=== PATIENT | male | born 1960 | race Caucasian/White ===

== ENCOUNTER → 2019-01-10 11:37 | Outpatient (CLI) | payer MEDICAID, SELFPAY ==
[2016-05-26 19:48] VITALS: BMI 29.6
--- NOTE | 2019-01-10 11:45 | RAD_ITS ---
STUDY: X-RAY - LEFT KNEE REASON FOR EXAM: Male, 59 years old. Pain TECHNIQUE: 2 view(s) of the knee. COMPARISON: None. FINDINGS: Normal visualized distal femur. Normal visualized proximal tibia and fibula. Normal proximal tibiofibular articulation. Normal medial femorotibial compartment. Normal lateral femorotibial compartment. Normal patellofemoral articulation. The soft tissue structures are unremarkable. RAD/Knee 1 or 2 Views IMPRESSION: Normal x-ray examination of the knee. Electronically Signed: Ryan Burnett MD at 0:01 EST , Service support ,
== END ==
PROVIDERS: Family Provider Family Medicine; PCP Family Medicine
DX: M25.562 Pain in left knee (principal)
CPT/HCPCS: 73560

== ENCOUNTER → 2019-05-02 15:59 | Outpatient (CLI) | payer MEDICAID, SELFPAY ==
[2016-05-26 19:48] VITALS: BMI 29.6
--- NOTE | 2019-05-02 16:20 | RAD_ITS ---
STUDY: X-RAY - LEFT ANKLE REASON FOR EXAM: Male, 59 years old. Chronic left ankle pain TECHNIQUE: 2 view(s) of the ankle. COMPARISON: June 24, 2016 FINDINGS: There are no acute fractures or dislocations. The ankle mortise and the subtalar joints are normal. There is a small plantar calcaneal spur. Electronically Signed: Jason Price MD at 3:31 EDT Tel , Service support , RAD/Ankle 2 Views
== END ==
PROVIDERS: Family Provider Family Medicine; PCP Family Medicine
DX: M25.572 Pain in left ankle and joints of left foot (principal)
CPT/HCPCS: 73600

== ENCOUNTER → 2019-12-12 13:04 | Outpatient (CLI) | payer MEDICAID, SELFPAY ==
[2016-05-26 19:48] VITALS: BMI 29.6
--- NOTE | 2019-12-12 13:45 | RAD_ITS ---
STUDY: X-RAY - LEFT FOOT CLINICAL: Male, 59 years old. heel spur TECHNIQUE: 2 view(s) of the foot. COMPARISON: None. FINDINGS: There is a plantar calcaneal spur and there is a posterior calcaneal enthesophyte at the insertion site of the Achilles'' tendon. Otherwise normal talus, calcaneus, and tarsal bones, Normal visualized subtalar, talonavicular, calcaneocuboid, tarsal and tarsometatarsal articulations. Normal metatarsi. Normal metatarsophalangeal joint of the great toe. Normal tibial and fibular sesamoid bones. Normal interphalangeal joint of the great toe. Normal phalanges of the great toe. Normal second through fifth metatarsophalangeal joints. Normal interphalangeal joints and phalanges of the lesser toes. There are 3 tiny rounded calcific densities, ranging up to 0.5 mm, projecting over plantar soft tissues between the first and second metatarsal heads. These may be related to remote soft tissue trauma.. RAD/Foot 2 Views IMPRESSION: Plantar calcaneal spur and posterior calcaneal enthesophyte. No demonstrated fracture, dislocation, or destructive osseous lesion. Electronically Signed: Skyler Romo MD at 0:22 EST , Service support ,
--- NOTE | 2019-12-12 13:45 | RAD_ITS ---
STUDY: X-RAY - LUMBAR SPINE REASON FOR EXAM: Male, 59 years old. low back pain for years; worsening recently TECHNIQUE: 6 view(s) of the lumbar spine were obtained. COMPARISON: X-Ray Lumbar Spine 04/23/2016. FINDINGS: Normal lumbar lordosis. There is no substantial scoliosis. There is a normal alignment of the vertebrae. Normal vertebral bodies. There is mild multilevel spondylosis.. Normal disc space heights. There is mild degenerative arthrosis of the facet joints at the L5-S1 level.. The soft tissue structures are unremarkable. RAD/L/S Spine Min 4 Views IMPRESSION: Degenerative changes of the spine, as detailed above. Electronically Signed: Skyler Romo MD at 0:42 EST , Service support ,
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
== END ==
PROVIDERS: PCP Family Medicine; Referring Provider Anesthesiology Pain Medicine; Visit Provider Anesthesiology Pain Medicine
DX: G89.4 Chronic pain syndrome (principal); M79.10 Myalgia, unspecified site; F11.21 Opioid dependence, in remission; M19.011 Primary osteoarthritis, right shoulder; M79.672 Pain in left foot; M54.5 Low back pain; M51.36 Other intervertebral disc degeneration, lumbar region
CPT/HCPCS: 72110; 73030; 73620

== ENCOUNTER 2020-09-21 18:22 | Emergency (ER) | payer MEDICAID, SELFPAY ==
[2020-09-21 18:23] VITALS: BP 143/69; PULSE 70; RESP 16; TEMP 36.5; O2SAT 96; BMI 30.9
[2020-09-21 19:05] LABS: Bacteria 0 SEEN /hpf (None Seen); Mucous, Urine 0 SEEN /hpf (<or=2+); Red Blood Cells-Urine 0 SEEN /hpf (0-5); Squamous Epithelial Cells - UA 0 SEEN /hpf (0-5); White Blood Cells 0 SEEN /hpf (0-5)
[2020-09-21 19:07] LABS: Color, Urine Yellow (Yellow); Glucose, Dipstick Normal (Normal); Ketone-Dipstick Negative (Negative); Leukocyte Esterase-Dipstick Negative /ul (Negative); Nitrite-Dipstick Negative (Negative); Occult Blood-Urine 50 /ul (Negative); Protein-Dipstick 15 mg/dl (Negative); Specific Gravity, Urine 1.025 (1.002-1.030); Urine Bilirubin Dipstick Negative (Negative); Urine Clarity Clear (Clear); Urine Urobilinogen Normal (Normal)
--- NOTE | 2020-09-21 19:34 | CT_ITS ---
STUDY: CT ABDOMEN AND PELVIS WITH CONTRAST REASON FOR EXAM: Male, 60 years old. LT SIDED ABDOMEN PAIN SINCE THURSDAY,ELEVATED WBC -- HX:HTN,DIVERTICULITIS WITH SURGERY RADIATION DOSAGE (If Supplied By Facility): CTDIvol = ( 14.77 ) mGy, DLP = ( 882.37 ) mGycm TECHNIQUE: Transaxial images were obtained from the dome of the diaphragm to the symphysis pubis without oral contrast. IV 100ML ISOVUE 300 was administered. Sagittal and coronal images were reconstructed. Individualized dose optimization techniques were used for this CT. COMPARISON: Prior abdomen and pelvic CT exam of 09/24/2013 FINDINGS: Stable chronic fibrotic change at the right lung base. Chronic elevation right diaphragm. Normal liver. Normal gallbladder and extrahepatic biliary system. Normal spleen. Normal pancreas. Normal bilateral adrenal glands. Normal right kidney. Normal left kidney. Normal visualized stomach. Normal small intestine. Diverticulosis of the colon without evidence of acute diverticulitis. Unremarkable sigmoid anastomosis. The appendix is visualized and appears normal. Mild calcified plaque of the aorta. Normal inferior vena cava. Normal retroperitoneum. Normal urinary bladder. Normal abdominal wall. Normal osseous structures. CT/Abdomen/Pelvis W IV Cont ONLY IMPRESSION: Stable fibrotic changes at the right lung base and chronic elevation of the right diaphragm. No acute bowel related findings. Negative for evidence of perforation, obstruction or inflammatory bowel changes. Diverticulosis is present without evidence of acute diverticulitis. Unremarkable sigmoid anastomosis. A normal appendix is identified. Normal kidneys bilaterally without hydronephrosis or stones. Nondistended urinary bladder. Unremarkable liver, spleen and pancreas with a nondistended gallbladder. Electronically Signed: Carrie Henderson MD at 21:56 EST , Service support ,
--- NOTE | 2020-09-21 19:35 | ED.VIS.GEN ---
History of Present Illness Chief Complaint: Flank Pain Informant: Patient Narrative: 60 yo male presents with left flank pain. States it began approximately 5 days ago. States it is intermittent in nature. States it began when he was moving a hot water tank. Denies any nausea or vomiting. Denies any urinary symptoms. His feels he has a kidney stone. Past Medical History - Allergies and Home Meds Allergies/Adverse Reactions: Allergies bacitracin Allergy (Verified 09/21/20 18:22) Swelling venom-wasp [wasp venom] Allergy (Verified 09/21/20 18:22) Shortness of breath ibuprofen Adverse Reaction (Verified 09/21/20 18:22) Nausea naproxen Adverse Reaction (Verified 09/21/20 18:22) Nausea Primary Care Physician: Charly Lara MD [Primary Care Provider] - Prior records reviewed: Yes Past Medical History: - - HTN Surgical History: noncontributory Smoking Status: Former smoker Alcohol: None Drugs: None Review of Systems General: Denies: Chills, Fever, Sweats Eyes: Denies: Visual changes - bilaterally, Diplopia ENT: Denies: Rhinorrhea, Sore throat Cardiovascular: Denies: Chest pain, Palpitations Respiratory: Denies: Dyspnea, Cough, Dyspnea on exertion Gastrointestinal: Reports: Abdominal pain. Denies: Nausea, Vomiting, Diarrhea, Melena, Hematochezia Genitourinary: Denies: Dysuria, Hematuria, Frequency Musculoskeletal: Denies: Back pain, Extremity Pain Skin: Denies: Rash, Wounds Neurological: Denies: Headache, Weakness, Numbness Physical Exam Vital Signs/Narrative: Vital Signs Temp Pulse Resp BP Pulse Ox 09/21/20 18:23 97.7 F L 70 16 143/69 H 96 Inital Vital Signs reviewed: Yes General: Well nourished, Well developed, No Acute Distress Head: Normocephalic, Atraumatic Eyes: Perrl, EOMI ENT: Moist mucous membranes, No rhinorrhea Neck: Supple, Nontender Cardiovascular: Regular rate, Regular rhythm, No murmurs Respiratory: No distress, CTA bilaterally, Chest nontender Abdomen: Soft, Nondistended, Normal bowel sounds, - - LLQ TTP. Back: Nontender, Normal Inspection Extremities: Nontender, No edema Skin: Normal color, No rash Neurological: Alert, Oriented x3, Cranial nerves II-XII grossly intact, Normal Strength, Normal Sensation Psychological: Normal affect, Normal Mood Diagnostic/Tx/Re-eval Clinical Impression(s) from Imaging Studies Abdomen/Pelvis CT 09/21/20 19:34 IMPRESSION: Stable fibrotic changes at the right lung base and chronic elevation of the right diaphragm. No acute bowel related findings. Negative for evidence of perforation, obstruction or inflammatory bowel changes. Diverticulosis is present without evidence of acute diverticulitis. Unremarkable sigmoid anastomosis. A normal appendix is identified. Normal kidneys bilaterally without hydronephrosis or stones. Nondistended urinary bladder. Unremarkable liver, spleen and pancreas with a nondistended gallbladder. Electronically Signed: Carrie Henderson MD at 21:56 EST , Service support , Laboratory Data 09/21/20 09/21/20 09/21/20 18:58 20:02 20:02 WBC 11.9 H RBC 5.27 Hgb 15.7 Hct 47.0 MCV 89.2 MCH 29.8 MCHC 33.4 RDW Std Deviation 39.4 RDW Coeff of Shanna 12.0 Plt Count 288 MPV 9.0 Immature Gran % (Auto) 0.600 Neut % (Auto) 60.8 Lymph % (Auto) 25.4 [place] % (Auto) 11.7 H Eos % (Auto) 0.8 Baso % (Auto) 0.7 Absolute Neuts (auto) 7.3 Absolute Lymphs (auto) 3.03 Nucleated RBC % 0 Sodium 139 Potassium 4.7 Chloride 105 Carbon Dioxide 29.0 Anion Gap 5 BUN 19 H Creatinine 0.81 Estim Creat Clear Calc 87.52 Est GFR (MDRD) Af Amer 124 Est GFR (MDRD) Non-Af 103 BUN/Creatinine Ratio 23.4 H Glucose 98 Calcium 9.2 Total Bilirubin 0.70 AST 29 ALT 30 Alkaline Phosphatase 107 Total Protein 7.6 Albumin 3.9 Globulin 3.7 Albumin/Globulin Ratio 1.1 Urine Color Yellow Urine Clarity Clear Urine pH 5.0 Ur Specific [place] 1.025 Urine Protein 15 H Urine Glucose (UA) Normal Urine Ketones Negative Urine Occult Blood 50 H Urine Nitrite Negative Urine Bilirubin Negative Urine Urobilinogen Normal Ur Leukocyte Esterase Negative Urine RBC 0 SEEN Urine WBC 0 SEEN Ur Squamous Epith Cells 0 SEEN Urine Bacteria 0 SEEN Urine Mucus 0 SEEN - Medical Decision Making Patient appears well nontoxic. Vital signs within normal limits. Lab work within normal limits. Patient does have scant in his urine. CT scan negative. Patient either passed a kidney stone or has a musculoskeletal injury. Will be treated with Naprosyn at home. Asked to follow-up with primary care. Patient agreeable and discharged home in stable condition. Impression: 1. Left groin pain ED Disposition - Plan for ED Patient: Instructions: ED Flank Pain Uncertain Cause Prescriptions: Naproxen [Naprosyn] 500 mg PO BID #14 tab Prescription Printed Referrals: Charly Lara MD [Primary Care Provider] - 2 Days
[2020-09-21 20:03] VITALS: BP 149/87; PULSE 63; RESP 18; O2SAT 97
[2020-09-21 20:17] LABS: Basophil% 0.7 % (0-1); Eosinophils% 0.8 % (0-5); Hemoglobin 15.7 g/dL (13.0-16.5); Lymphocyte % 25.4 % (19-41); Mean Corp Hgb Conc 33.4 g/dL (32-36); Mean Corpuscular Hgb 29.8 pg (27.0-32.0); Mean Corpuscular Volume 89.2 fL (80-94); Monocyte% 11.7 % (0-10); Neutrophil % 60.8 % (47-70); Platelet Count 288 K/mm3 (150-450); RBC Distribution Width SD 39.4 fl (35.1-43.9); Red Blood Count 5.27 M/mm3 (4.6-6.2); White Blood Count 11.9 K/mm3 (4.4-11.0)
[2020-09-21 20:18] LABS: Absolute Lymphocyte Count 3.03 X10^3/uL (0.83-4.51); Absolute Neutrophil Count 7.3 X10^3/uL (2.0-7.7); Basophil# 0.08 X10^3/uL; Lymphocyte # 3.03 X10^3/ul (4.0); NRBC Flagged by Analyzer 0 % (0-5); Neutrophil # 7.26 X10^3/uL (2.7-7.7)
[2020-09-21 21:06] LABS: ALB/GLOB Ratio 1.1 RATIO (0.9-2.4); AST(SGOT) 29 U/L (15-37); Alanine Aminotransfer ALT/SGPT 30 U/L (16-61); Albumin, Serum 3.9 g/dL (3.2-5.0); Alkaline Phosphatase 107 U/L (45-117); Anion Gap 5 (5-15); BUN 19 mg/dL (7-18); BUN/Creat Ratio 23.4 RATIO (10-20); Calcium,Total 9.2 mg/dL (8.5-10.1); Chloride 105 mmol/L (98-107); Creatinine, Serum 0.81 mg/dL (0.70-1.30); EST Glomerular Filtration Rate 103 mL/min (>60); Est Glom Filt Rate - Afr Amer 124 mL/min (>60); Estimated Creatinine Clearance 87.52 ml/min; Globulin 3.7 g/dL (2.2-4.2); Glucose 98 mg/dL (74-106); Potassium 4.7 mmol/L (3.5-5.1); Protein, Total 7.6 g/dL (6.4-8.2); Sodium Level 139 mmol/L (136-145)
== END 2020-09-21 22:19 | disposition home or self-care (01) ==
LOC: ED 19:44
PROVIDERS: Emergency Provider Emergency Medicine; PCP Family Medicine
DX: R10.32 Left lower quadrant pain (principal); I10 Essential (primary) hypertension; Z88.6 Allergy status to analgesic agent
CPT/HCPCS: 74177; 80053; 81001; 85025; 99285; Q9967; A4216